=== PATIENT | female | born 1970 | race Caucasian/White ===

== ENCOUNTER 2017-12-15 08:45 | Inpatient (IN) | payer OTHER ==
[~2017-12-15] VITALS: Ht 162.6 cm; Wt 76.2 kg
== END 2017-12-29 13:45 | disposition home or self-care (01) | DRG 581 ==
LOC: O/R 12-17 07:57 → SURH 12-17 07:57 → O/R 12-28 06:23 → SURH 12-28 13:19
PROVIDERS: Obstetrics & Gynecology Gynecologic Oncology; Plastic Surgery
PROC: 0HHV0NZ Insertion of Tissue Expander into Bilateral Breast, Open Approach (ICD-10-PCS; 2017-12-28)
PROC: 07T50ZZ Resection of Right Axillary Lymphatic, Open Approach (ICD-10-PCS; principal; 2017-12-28 07:00)
PROC: 0HTV0ZZ Resection of Bilateral Breast, Open Approach (ICD-10-PCS; 2017-12-28 07:00)
DX: C50.411 Malignant neoplasm of upper-outer quadrant of right female breast (principal); Z17.0 Estrogen receptor positive status [ER+]; N64.1 Fat necrosis of breast; Z90.13 Acquired absence of bilateral breasts and nipples; N62 Hypertrophy of breast

== ENCOUNTER 2018-03-19 09:59 | Day surgery (SDC) | payer OTHER | END 2018-03-19 21:10 | disposition home or self-care (01) | LOC: CIR.AMB 09:59 | DX: C50.911 Malignant neoplasm of unspecified site of right female breast (principal); Z90.13 Acquired absence of bilateral breasts and nipples ==